=== PATIENT | male | born 1975 ===

== ENCOUNTER 2016-09-02 07:08 | Emergency (ER) | payer BC ==
--- NOTE | 2016-09-02 08:54 | UC ---
Nghia Campbell Benjamin, scribed for Missy Dalton DO on 09/02/16 at 0746 . Abdominal Pain Male HPI - HPI Summary HPI Summary: 41yo male c/o having diffuse lower abdominal pain sicne Tuesday. Pt describes pain as achy and crampy in 2/10 scale and gets worse when passing down food. Pt reports having loose stool BM x1/day, and more gassy than usual. Pain is located in the lower and middle abd area diffusely, but more on the left side. Denies nausea, cough, CP, MAGALLANES, rash, flank pain, rectal pain or any urinary symptoms. Denies any significant PMHx. FHX of HTN, and DM. - History of Current Complaint Chief Complaint: UCAbdominalPain Stated Complaint: ABDOMINAL PAIN Time Seen by Provider: 09/02/16 07:21 Hx Obtained From: Patient Onset/Duration: Gradual Onset, Lasting Days - 4 days, Still Present Timing: Constant Severity Initially: Mild - 2 Severity Currently: Mild - 2 Pain Intensity: 2 Pain Scale Used: 0-10 Numeric Location: Other - lower and middle abd l>r Radiates: No Character: Aching, Cramping Aggravating Factor(s):: Food Alleviating Factor(s): Nothing Associated Signs And Symptoms: Positive: Nausea, Diarrhea - loose stool. Negative: Diaphoresis, Cough, Chest Pain, Dizzy, Back Pain, Constipation, Blood in Stool, Urinary Symptoms, Vomiting, Penile Discharge - Allergies/Home Medications Allergies/Adverse Reactions: Allergies Allergy/AdvReac Type Severity Reaction Status Date / Time No Known Allergies Allergy Verified 09/02/16 07:14 Home Medications: Home Medications Hydrochlorothiazide TAB* [Hydrodiuril TAB*] 25 mg PO DAILY 09/02/16 [History Confirmed 09/02/16] Lisinopril TAB* [Prinivil TAB 10 MG*] 30 mg PO DAILY 09/02/16 [History Confirmed 09/02/16] amLODIPine TAB* [Norvasc 5 mg TAB*] 5 mg PO DAILY 09/02/16 [History Confirmed ] PMH/Surg Hx/FS Hx/Imm Hx Previously Healthy: No Cardiovascular History: Hypertension - Surgical History Surgical History: Yes Surgery Procedure, Year, and Place: Tonsillectomy, tubes - Family History Known Family History: Positive: Cardiac Disease, Hypertension, Diabetes - Social History Occupation: Employed Full-time Lives: Alone Alcohol Use: Occasionally Substance Use Type: None Smoking Status (MU): Light Every Day Tobacco Smoker Type: Cigarettes Have You Smoked in the Last Year: Yes Household Exposure Type: Cigarettes - Immunization History Most Recent Tetanus Shot: unknown Review of Systems Constitutional: Negative Skin: Other - cold sore on lip for which pt uses abreva Eyes: Negative ENT: Negative Respiratory: Negative Cardiovascular: Negative Gastrointestinal: Abdominal Pain Genitourinary: Negative Motor: Negative Neurovascular: Negative Musculoskeletal: Negative Neurological: Negative Psychological: Negative All Other Systems Reviewed And Are Negative: Yes Physical Exam Triage Information Reviewed: Yes Appearance: Well-Appearing, No Pain Distress, Obese Vital Signs: Initial Vital Signs Temp 97.5 F 09/02/16 07:10 Pulse 66 09/02/16 07:10 Resp 16 09/02/16 07:10 BP 193/100 09/02/16 07:10 Pulse Ox 99 09/02/16 07:10 Vital Signs Reviewed: Yes Eyes: Positive: Conjunctiva Clear. Negative: Discharge ENT: Positive: Normal ENT inspection. Negative: Muffled/hoarse voice Neck exam: Normal Neck: Positive: Supple Respiratory: Positive: Lungs clear, Normal breath sounds, No respiratory distress, No accessory muscle use Cardiovascular: Positive: RRR, No Murmur Abdomen Description: Positive: Nontender, No Organomegaly, Soft, Other: - obese Bowel Sounds: Positive: Hyperactive Musculoskeletal: Positive: Strength Intact, ROM Intact Neurological: Positive: Alert, Muscle Tone Normal Psychological Exam: Normal Psychological: Positive: Age Appropriate Behavior Skin Exam: Other - warm, dry, normal color Skin: Positive: Other - cold sore on rt upper lip Abd Pain Male Course/Dx - Course Course Of Treatment: Triaged blood pressure: 193/100. Repeat BP: 158/108. - Differential Dx/Clinical Impression Provider Diagnoses: Hypertension under poor control, abd pain, gas and bloating Discharge - Discharge Plan Condition: Stable Disposition: HOME Patient Education Materials: Gas and Bloating (ED), Abdominal Pain (ED), Nutrition Tips for Relief of Diarrhea (ED), Hypertension (ED) Forms: *Work Release Referrals: Sadia Rhoades MD [Primary Care Provider] - (follow up 3-5 days) Additional Instructions: YOUR BLOOD PRESSURE WAS ELEVATED AT THIS VISIT 158/108. THIS IS PROBABLY BECAUSE YOU HAVE NOT BEEN TAKING YOUR MEDS REGULARLY. PLEASE START TAKING THEM DIRECTED. KEEP YOUR SCHEDULED APPOINTEMENT WITH YOUR PCP NEXT WEEK PLANNED. RE-CHECK YOU BP AT LEAST 2 TIMES EACH DAYS BETWEEN NOW AND THEN. BE SURE TO RELAX FOR 5 MINUTES PRIOR TO CHECKING. RECORD THE RESULTS AND BRING THEM WITH YOU TO YOUR PCP'S OFFICE ALONG WITH YOUR HOME CUFF FOR CALIBRATION WITH YOUR PCP'S OFFICE CUFF. IF YOU DEVELOP ANY NEW SYMPTOMS SUCH DIZZINESS , SHORTNESS OF BREATH, HEAD ACHE, VISUAL CHANGES, CHEST PAIN, NAUSEA OR VOMITING , BLOOD IN YOUR URINE, LIGHTHEADEDNESS, OR ANY OTHER CONCERNING NEW SYMPTOM, GO TO THE ED IMMEDIATELY. The documentation as recorded by the Nghia king Benjamin accurately reflects the service I personally performed and the decisions made by me, Missy Dalton DO.
== END 2016-09-02 08:19 | disposition home or self-care (01) ==
LOC: UCEAST 07:08
DX: R10.30 Lower abdominal pain, unspecified (principal); R14.0 Abdominal distension (gaseous); I10 Essential (primary) hypertension; E66.9 Obesity, unspecified; F17.210 Nicotine dependence, cigarettes, uncomplicated
CPT/HCPCS: 99212; G0463

== ENCOUNTER 2018-03-20 10:18 | Emergency (ER) | payer BC ==
[2018-03-20 10:31] VITALS: BP 155/106
--- NOTE | 2018-03-20 11:02 | UC ---
Respiratory Complaint HPI - HPI Summary HPI Summary: 42 yo male presents with productive cough, feeling warm, and sinus pain/pressure /congestion for the last 5 days getting progressively worse. He has been taking ibuprofen and dayquill with no relief. Denies sore throat, SOB, chest pain, abdominal pain - History of Current Complaint Chief Complaint: UCGeneralIllness Stated Complaint: COUGH Time Seen by Provider: 03/20/18 10:57 Hx Obtained From: Patient Onset/Duration: Gradual Onset Severity Initially: Moderate Severity Currently: Moderate Pain Intensity: 6 Pain Scale Used: 0-10 Numeric Character: Cough: Productive - Allergies/Home Medications Allergies/Adverse Reactions: Allergies Allergy/AdvReac Type Severity Reaction Status Date / Time No Known Allergies Allergy Verified 03/20/18 10:31 PMH/Surg Hx/FS Hx/Imm Hx Cardiovascular History: Hypertension - Surgical History Surgical History: Yes Surgery Procedure, Year, and Place: Tonsillectomy, tubes - Family History Known Family History: Positive: Cardiac Disease, Hypertension, Diabetes - Social History Occupation: Employed Full-time Lives: With Family Alcohol Use: Occasionally Substance Use Type: None Smoking Status (MU): Light Every Day Tobacco Smoker Type: Cigarettes Have You Smoked in the Last Year: Yes Household Exposure Type: Cigarettes - Immunization History Most Recent Tetanus Shot: unknown Review of Systems All Other Systems Reviewed And Are Negative: Yes Constitutional: Positive: Negative Skin: Positive: Negative Eyes: Positive: Negative ENT: Positive: Nasal Discharge, Sinus Congestion, Sinus Pain/Tenderness Respiratory: Positive: Cough Cardiovascular: Positive: Negative Gastrointestinal: Positive: Negative Neurovascular: Positive: Negative Neurological: Positive: Negative Psychological: Positive: Negative Physical Exam - Summary Physical Exam Summary: GENERAL: NAD. WDWN. No pain distress. SKIN: No rashes, sores, lesions, or open wounds. HEENT: Head: AT/NC Eyes: EOM intact. Conjunctiva clear without inflammation or discharge. Ears: Hearing grossly normal. TMs intact, no bulging, erythema, or edema. Nose: Nasal mucosa mildly swollen and erythematous with yellow discharge. TTP maxillary and frontal sinus. Positive post nasal drip Throat: Posterior oropharynx without exudates or erythema. Uvula midline. NECK: Supple. Nontender. No lymphadenopathy. CHEST: CTAB. No r/r/w. No accessory muscle use. Breathing comfortably and in no distress. CV: RRR. Without m/r/g. Pulses intact. NEURO: Alert. PSYCH: Age appropriate behavior. Triage Information Reviewed: Yes Vital Signs: Initial Vital Signs Temp 100.1 F 03/20/18 10:28 Pulse 91 03/20/18 10:28 Resp 17 03/20/18 10:28 BP 155/106 03/20/18 10:28 Pulse Ox 98 03/20/18 10:28 Vital Signs Reviewed: Yes UC Diagnostic Evaluation - Laboratory O2 Sat by Pulse Oximetry: 98 Respiratory Course/Dx - Course Course Of Treatment: Sinusitis - Differential Dx/Diagnosis Provider Diagnosis: Sinusitis Discharge - Sign-Out/Discharge Documenting (check all that apply): Patient Departure All imaging exams completed and their final reports reviewed: No Studies - Discharge Plan Condition: Stable Disposition: HOME Prescriptions: Amoxicillin PO (*) [Amoxicillin 875 MG (*)] 875 mg PO BID #14 tab Patient Education Materials: Sinusitis (ED) Forms: *Work Release Referrals: Sadia Rhoades MD [Primary Care Provider] - Additional Instructions: If you develop a fever, shortness of breath, chest pain, new or worsening symptoms - please call your PCP or go to the ED. Your blood pressure was high at todays visit. Please see your primary provider within 4 weeks for recheck and re-evaluation. - Billing Disposition and Condition Condition: STABLE Disposition: Home
== END 2018-03-20 11:21 | disposition home or self-care (01) ==
LOC: UCEAST 10:18
DX: J32.9 Chronic sinusitis, unspecified (principal); I10 Essential (primary) hypertension; F17.210 Nicotine dependence, cigarettes, uncomplicated
CPT/HCPCS: 99212; G0463

== ENCOUNTER 2018-12-05 11:18 | Emergency (ER) | payer BC, OTHER ==
--- NOTE | 2018-12-05 11:24 | UC ---
Abdominal Pain Male HPI - HPI Summary HPI Summary: 43 yo male presents with abdominal pain. He tells me that he woke up this morning and noticed some periumbilical cramping. A few hours went by and his pain steadily worsened to become severe 10/10 associated with nausea and radiating into his b/l flanks. He feels nauseous but has had no vomiting. He has not eaten today. He reports feeling well yesterday. Denies fever, chills, SOB, chest pain, diarrhea, dysuria. No hx of kidney stone. - History of Current Complaint Stated Complaint: ABDOMINAL PAIN Time Seen by Provider: 12/05/18 11:24 Hx Obtained From: Patient Onset/Duration: Sudden Onset Severity Initially: Moderate Severity Currently: Severe Pain Intensity: 10 Pain Scale Used: 0-10 Numeric - Allergies/Home Medications Allergies/Adverse Reactions: Allergies Allergy/AdvReac Type Severity Reaction Status Date / Time No Known Allergies Allergy Verified 12/05/18 11:31 Home Medications: Home Medications Emtricitabine/Tenofovir (Tdf) [Truvada 133-200 mg] 1 tab PO DAILY WITH MEAL 01/13 [History Confirmed 12/05/18] Loratadine/Pseudoephedrine [Claritin-D 24 Hour 10-240 mg] 1 tab PO DAILY WITH MEAL 12/05/18 [History Confirmed 12/05/18] PMH/Surg Hx/FS Hx/Imm Hx Cardiovascular History: Hypertension - Surgical History Surgical History: Yes Surgery Procedure, Year, and Place: Tonsillectomy, tubes - Family History Known Family History: Positive: Cardiac Disease, Hypertension, Diabetes - Social History Lives: With Family Alcohol Use: Occasionally Substance Use Type: None Smoking Status (MU): Light Every Day Tobacco Smoker Type: Cigarettes Have You Smoked in the Last Year: Yes Household Exposure Type: Cigarettes - Immunization History Most Recent Tetanus Shot: unknown Review of Systems All Other Systems Reviewed And Are Negative: No Constitutional: Positive: Negative Skin: Positive: Negative Respiratory: Positive: Negative Cardiovascular: Positive: Negative Gastrointestinal: Positive: Abdominal Pain, Nausea Genitourinary: Positive: Negative Motor: Positive: Negative Neurovascular: Positive: Negative Musculoskeletal: Positive: Negative Neurological: Positive: Negative Psychological: Positive: Negative Physical Exam - Summary Physical Exam Summary: GENERAL: Moderate pain distress. SKIN: No rashes, sores, lesions, or open wounds. CHEST: CTAB. No r/r/w. No accessory muscle use. Breathing comfortably and in no distress. CV: RRR. Without m/r/g. Pulses intact. Cap refill <2seconds ABDOMEN: Soft. TTP periumbilical and LUQ. No distention or guarding. No CVA tenderness. Bowel sounds present. No ecchymosis on abdomen or flanks. NEURO: Alert. PSYCH: Age appropriate behavior. Triage Information Reviewed: Yes Vital Signs: Vital Signs: Temp Pulse Resp BP Pulse Ox 98.1 F 55 22 171/100 98 12/05/18 11:27 12/05/18 11:27 12/05/18 11:27 12/05/18 11:27 12/05/18 11:27 Laboratory Tests 12/05/18 11:49 POC Urine Color Yellow POC Urine Clarity Clear POC Urine pH 5.5 POC Ur Specif Mcdowell >= 1.030 POC Urine Protein 2+ A POC Ur Glucose (UA) Negative POC Urine Ketones Negative POC Urine Blood 3+ A POC Urine Nitrite Negative POC Urine Bilirubin Negative POC Urine Urobilinogen 0.2 POC U Leukocyte Esteras Negative Vital Signs Reviewed: Yes Abd Pain Male Course/Dx - Course Course Of Treatment: UA with blood and protein. Acute pain with UA findings could indicate a kidney stone, but his abdominal pain seems atypical for this. His BP is elevated - likely due to increased pain and hx of HTN. I recommended ambulance transfer to the ED as pt drove himself here, but he declines. He will call a friend to drive him. In the clinic he was given toradol IM and zofran ODT. - Differential Dx/Clinical Impression Provider Diagnosis: Periumbilical pain Discharge ED - Sign-Out/Discharge Documenting (check all that apply): Patient Departure All imaging exams completed and their final reports reviewed: No Studies - Discharge Plan Condition: Stable Disposition: HOME-RECOMMEND TO ED Referrals: Sadia Rhoades MD [Primary Care Provider] - Additional Instructions: Please go to the ER for further evaluation of your abdominal pain. YOU HAVE DECLINED TRANSFER TO THE ER BY AMBULANCE. BE ADVISED THAT NOT TRAVELING IN A MONITORED SETTING YOU COULD BE RISKING WORSENING OF YOUR CONDITION THAT COULD POSE A THREAT TO YOUR LIFE, HEALTH, AND MEDICAL SAFETY. - Billing Disposition and Condition Condition: STABLE Disposition: Home-Recommend to ED
[2018-12-05 11:43] VITALS: BP 171/100
[2018-12-05] MEDS ORDERED: Ketorolac *IM* INJ* 60 MG/2 ML VIAL IM ONE (11:55)
[2018-12-05] MEDS ORDERED: Ondansetron ODT TAB* 4 MG SL ONE (11:55)
== END 2018-12-05 12:10 | disposition home health service (06) ==
LOC: UCEAST 11:18
DX: R10.9 Unspecified abdominal pain (principal); I10 Essential (primary) hypertension; F17.210 Nicotine dependence, cigarettes, uncomplicated
CPT/HCPCS: 81003; 96372; 99212; A9270-GY; G0463; J1885

== ENCOUNTER 2018-12-05 12:47 | Emergency (ER) | payer BC, OTHER ==
[2018-12-05 14:49] LABS: ABS Basophils 0.1 10^3/ul (0-0.2); ABS Eosinophils 0.1 10^3/ul (0-0.6); ABS Lymphocytes 1.7 10^3/ul (1.0-4.8); ABS Monocytes 0.9 10^3/ul (0-0.8); Eosinophil % 0.4 %; Hematocrit 43 % (42-52); Hemoglobin 14.9 g/dL (14.0-18.0); Lymphocyte % 10.3 %; Mean Corpuscular HGB Conc 34 g/dL (31-36); Mean Corpuscular Hemoglobin 29 pg (27-31); Mean Corpuscular Volume 84 fL (80-94); Mean Platelet Volume 7.5 fL (7.4-10.4); Platelet Count 356 10^3/uL (150-450); Red Blood Count 5.16 10^6 /uL (4.18-5.48); Red Cell Distribution Width 14 % (10-15); White Blood Count 16.8 10^3/uL (3.5-10.8)
[2018-12-05] MEDS ORDERED: NS 0.9% 1000 ML** 1,000 ML IV ONE (15:15)
--- NOTE | 2018-12-05 15:16 | ED ---
Abdominal Pain/Male - HPI Summary HPI Summary: Patient is a 43-year-old male who presents to emergency department for abdominal pain started acutely today. Patient notes he had one episode of vomiting and notes a urinary urgency. Patient was seen at [facility] care prior to arrival and received a dose of Toradol and Zofran and is currently pain -free in the emergency department. No significant past medical history. Patient has never had similar symptoms. No current modifying factors. Denies associated symptoms of fever, diarrhea, chest pain, shortness of breath, upper respiratory symptoms. - History of Current Complaint Chief Complaint: EDAbdPain Stated Complaint: ABD PAIN PER PT Time Seen by Provider: 12/05/18 14:57 Hx Obtained From: Patient Pain Intensity: 2 - Allergies/Home Medications Allergies/Adverse Reactions: Allergies Allergy/AdvReac Type Severity Reaction Status Date / Time No Known Allergies Allergy Verified 12/05/18 11:31 Home Medications: Home Medications Cholecalciferol TAB* [Vitamin D TAB*] 1,000 unit PO DAILY 12/05/18 [History Confirmed 12/05/18] Melatonin 10 mg PO BEDTIME 12/05/18 [History Confirmed 12/05/18] PMH/Surg Hx/FS Hx/Imm Hx Previously Healthy: Yes Endocrine/Hematology History: Denies: Hx Diabetes, Hx Thyroid Disease Cardiovascular History: Reports: Hx Hypertension - on meds Respiratory History: Denies: Hx Asthma, Hx Chronic Obstructive Pulmonary Disease (COPD) GI History: Denies: Hx Ulcer - Surgical History Surgery Procedure, Year, and Place: Tonsillectomy, tubes Infectious Disease History: No Infectious Disease History: Reports: Hx Shingles Denies: Hx Clostridium Difficile, Hx Hepatitis, Hx Human Immunodeficiency Virus (HIV), Hx of Known/Suspected MRSA, Hx Tuberculosis, Hx Known/Suspected VRE , Hx Known/Suspected VRSA, History Other Infectious Disease, Traveled Outside the [place] in Last 30 Days - Family History Known Family History: Positive: Cardiac Disease, Hypertension, Diabetes, Non- Contributory - Social History Occupation: Employed Full-time Lives: Alone Alcohol Use: Occasionally Substance Use Type: Reports: None Smoking Status (MU): Current Some Day Smoker Type: Cigarettes Have You Smoked in the Last Year: Yes Review of Systems Constitutional: Negative Negative: Fever, Chills ENT: Negative Cardiovascular: Negative Respiratory: Negative Positive: Abdominal Pain, Vomiting, Nausea. Negative: Diarrhea Positive: urgency Skin: Negative Neurological: Negative All Other Systems Reviewed And Are Negative: Yes Physical Exam Triage Information Reviewed: Yes Vital Signs On Initial Exam: Initial Vitals Temp Pulse Resp BP Pulse Ox 98.2 F 59 24 191/95 99 12/05/18 12:49 12/05/18 12:49 12/05/18 12:49 12/05/18 12:49 12/05/18 12:49 Vital Signs Reviewed: Yes Appearance: Positive: Well-Appearing - Pt. sitting up in bed in NAD. Skin: Positive: Warm, Dry Head/Face: Positive: Normal Head/Face Inspection Eyes: Positive: Normal, EOMI Neck: Positive: Supple Respiratory/Lung Sounds: Positive: Clear to Auscultation, Breath Sounds Present Cardiovascular: Positive: Normal, RRR Abdomen Description: Positive: Other: - Obese. Abd. is soft with diffuse tenderness. No CVA tenderness. Neurological: Positive: Normal, CN Intact II-III Psychiatric: Positive: Affect/Mood Appropriate Diagnostics - Vital Signs Vital Signs Temp Pulse Resp BP Pulse Ox 12/05/18 14:43 98 F 61 18 152/85 98 12/05/18 12:49 98.2 F 59 24 191/95 99 - Laboratory Lab Results: Lab Results 12/05/18 Range/Units 14:42 WBC 16.8 H (3.5-10.8) 10^3/uL RBC 5.16 (4.18-5.48) 10^6 /uL Hgb 14.9 (14.0-18.0) g/dL Hct 43 (42-52) % MCV 84 (80-94) fL MCH 29 (27-31) pg MCHC 34 (31-36) g/dL RDW 14 (10-15) % Plt Count 356 (150-450) 10^3/uL MPV 7.5 (7.4-10.4) fL Neut % (Auto) 83.4 % Lymph % (Auto) 10.3 % Swisher % (Auto) 5.4 % Eos % (Auto) 0.4 % Baso % (Auto) 0.5 % Absolute Neuts (auto) 14.0 H (1.5-7.7) 10^3/ul Absolute Lymphs (auto) 1.7 (1.0-4.8) 10^3/ul Absolute Monos (auto) 0.9 H (0-0.8) 10^3/ul Absolute Eos (auto) 0.1 (0-0.6) 10^3/ul Absolute Basos (auto) 0.1 (0-0.2) 10^3/ul Absolute Nucleated RBC 0.0 10^3/ul Nucleated RBC % 0.0 Result Diagrams: 12/05/18 14:42 12/05/18 14:42 Lab Statement: Any lab studies that have been ordered have been reviewed, and results considered in the medical decision making process. Abdominal Pain Male Course/Dx - Course Course Of Treatment: Abdominal pain and vomiting. Patient's pain has resolved pain medication at [facility]. Blood work obtained in triage and shows a white blood cell count of 16,000. Urinalysis shows RBCs without bacteria or leukocytes. Pt. 's pain returned and was given IV morphine. Pt. will be signed out to Sunny March. PAC for CT result and disposition. - Diagnoses Differential Diagnosis/HQI/PQRI: Appendicitis, Constipation, Renal Colic, Ureteral Stone, Urinary Tract Infection Provider Diagnoses: Urolithiasis Discharge ED - Sign-Out/Discharge Documenting (check all that apply): Patient Departure, Sign-Out Patient Signing out patient TO: Sunny March Patient Received Moderate/Deep Sedation with Procedure: No - Discharge Plan Condition: Stable Disposition: HOME Prescriptions: Oxycodone HCl 5 mg PO TID 3 Days #8 tablet MDD 4 tabs Patient Education Materials: Kidney Stones (ED) Forms: *Work Release Referrals: Ruma Acevedo [Primary Care Provider] - Braulio Cramer MD [Medical Doctor] - Additional Instructions: Drink plenty of fluids to help passed stone. Take pain medication as directed if necessary. Take ibuprofen as well. Follow-up with urologist Dr. Cramer. Return to the ED for any new or worsening symptoms. - Billing Disposition and Condition Condition: STABLE Disposition: Home - Attestation Statements Provider Attestation: I was available for consultation for this patient. I did not evaluate the patient or participate in any medical decision making or disposition decisions unless I am specifically named in the chart as having consulted on the patient. If I have consulted on the patient, please see my own ED note on the patient encounter. Rashid Coreas MD
[2018-12-05 15:39] LABS: Albumin 4.2 g/dL (3.2-5.2); Albumin/Globulin Ratio 1.4 (1-3); BUN/Creatinine Ratio 15.8 (8-20); C Reactive Protein 8.86 mg/L (<8.01); Calcium 9.1 mg/dL (8.6-10.3); EGFR African American 98.5 (>60); EGFR Non-African American 81.4 (>60); Potassium 3.4 mmol/L (3.5-5.0); Total Bilirubin 0.7 mg/dL (0.2-1.0); Total Protein 7.2 g/dL (6.4-8.9)
[2018-12-05 15:51] LABS: Urine Appearance Cloudy; Urine Bacteria Absent (Absent); Urine Bilirubin Negative (Negative); Urine Blood 3+ (Negative); Urine Color Amber; Urine Glucose Negative (Negative); Urine Ketones Negative (Negative); Urine Nitrite Negative (Negative); Urine Protein 2+(100 mg/dL) (Negative); Urine Red Blood Cell 3+(>10/hpf) (Absent); Urine Specific Gravity 1.029 (1.010-1.030); Urine Squamous Epithelial Cell Present (Absent); Urine Urobilinogen Negative (Negative); Urine White Blood Cell 1+(6-10/hpf) (Absent)
[2018-12-05] MEDS ORDERED: Morphine 4 MG/ML VIAL (1 ml) 4 MG/ML VIAL IV ONE (16:29)
[2018-12-05] MEDS ORDERED: Iohexol 300* (CONTRAST) 10 ML SDV IV ONE (16:29)
[2018-12-05] MEDS ORDERED: Ondansetron INJ* 2 MG/ML VIAL IV ONE (16:29)
[2018-12-05] MEDS ORDERED: oxyCODONE TAB* 5 MG TAB PO ONE (19:13)
[2018-12-05 19:59] VITALS: BP 174/89
--- NOTE | 2018-12-06 02:32 | PN ---
Progress Note - Progress Note Date of Service: 12/06/18 Note: Patient signed out to me by a Mono B[facility] pending results of CT abdomen and pelvis. CT abdomen and pelvis positive for 3 mm right kidney stone. Vital signs within normal limits. WBC 16.8. Labs otherwise unremarkable. The patient's pain controlled here in the ED. [facility] discharged home in stable condition with diagnosis of kidney stone. Rx for oxycodone. Follow-up with urology.
== END 2018-12-05 19:57 | disposition home or self-care (01) ==
LOC: ED 12:47
DX: N20.1 Calculus of ureter (principal); K44.9 Diaphragmatic hernia without obstruction or gangrene; K57.30 Diverticulosis of large intestine without perforation or abscess without bleeding; R11.2 Nausea with vomiting, unspecified; I10 Essential (primary) hypertension; Z72.0 Tobacco use
CPT/HCPCS: 36415; 74177; 80053; 81003; 81015; 83605; 83690; 85025; 86140; 87086; 96361; 96374; 96375; 99283; A9270-GY; J2270; J2405; Q9967